=== PATIENT | male | born 1965 | race Caucasian/White ===

== ENCOUNTER 2022-09-15 12:14 | Observation (INO) | payer BC ==
[2022-09-15] MEDS ORDERED: Aspirin Chewable 81 MG TAB ONE (12:48)
[2022-09-15 12:56] LABS: #Basophils 0.1 10x3/uL (0.0-0.2); #Eosinphils 0.1 10x3/uL (0.0-0.5); #Monocytes 0.5 10x3/uL (0.0-1.1); #Neutrophils 3.3 10x3/uL (1.5-8.4); %Eosinophils 1.4 % (0.0-6.0); %Lymphocytes 22.7 % (18.0-47.0); %Monocytes 9.7 % (0.0-10.0); %Neutrophils 64.4 % (40.0-75.0); Hemoglobin 14.6 g/dL (13.5-17.5); Mean Corpuscular HGB CONC 36.6 g/dL (32.0-36.0); Mean Corpuscular Hemoglobin 31.1 pg (27.0-33.0); Mean Corpuscular Volume 84.9 fl (81.2-95.1); Mean Platelet Volume 12.1 fl (7.4-10.4); Platelet Count 195 10x3/uL (150-450); RBC Distribution Width 11.9 % (11.5-14.5); White Blood Cell (WBC) Count 5.1 10x3/uL (3.5-10.5)
[2022-09-15 13:19] LABS: ALT (SGPT) 36 U/L (8-55); AST (SGOT) 21 U/L (5-34); Albumin 4.9 g/dL (3.5-5.0); Alkaline Phosphatase 77 U/L (40-110); Anion Gap 14 mmol/L (10-20); BUN (Urea Nitrogen) 15 mg/dL (8.4-25.7); Bilirubin, Total 0.8 mg/dL (0.2-1.2); Calc. Creatinine Clearance 0 mL/min (70-130); Calcium 9.4 mg/dL (7.8-10.44); Carbon Dioxide 26 mmol/L (22-29); Chloride 104 mmol/L (98-107); Estimated GFR 86; Globulin 2.2 g/dL (2.4-3.5); Glucose 107 mg/dL (70-105); Lipase 26 U/L (8-78); Potassium 3.5 mmol/L (3.5-5.1); Protein, Total 7.1 g/dL (6.0-8.3); Sodium 140 mmol/L (136-145)
[2022-09-15 13:21] LABS: Bilirubin Neg (Negative); Blood, Urine 50 (Negative); Clarity Clear (Clear); Glucose, Urine (Dipstick) Normal (Negative); Ketone, Urine Negative (Negative); Leukocyte Negative (Negative); Nitrite Negative (Negative); Protein, Urine (Dipstick) 30 mg/dl (Neg-Trace); Specific Gravity, Urine 1.015 (1.005-1.030); Urobilinogen Normal mg/dL (Less than 2)
[2022-09-15 13:52] LABS: Bacteria/HPF Rare-Few HPF (None Seen); RBC/HPF 0-3 HPF (0-3); Squamous Epithelial None Seen HPF (0-3); WBC/HPF 0-3 HPF (0-3)
[2022-09-15 16:45] LABS: Troponin I 0.047 ng/mL (< 0.028)
[2022-09-15] MEDS ORDERED: hydrALAZINE 20 MG/ML VIAL SLOW IVP PRN (17:05)
[2022-09-15] MEDS ORDERED: Nitroglycerin 0.4 MG TAB (25 Tab Bottle) SL PRN (17:05)
[2022-09-15] MEDS ORDERED: Labetalol HCl 100 MG/20 ML VIAL SLOW IVP PRN (17:05)
[2022-09-15 18:56] VITALS: BMI 30.5
[2022-09-15 19:47] LABS: Troponin I 0.051 ng/mL (< 0.028)
[2022-09-15] MEDS ORDERED: busPIRone HCl 5 MG TAB PO SCH (22:15)
[2022-09-16 06:19] LABS: Cardiac Risk 4.8 (Less than 4.5)
[2022-09-16] MEDS: busPIRone HCl 5 MG TAB PO SCH ×2 (08:08→16:06)
[2022-09-16] MEDS ORDERED: Aspirin Chewable 81 MG TAB PO SCH (09:00)
[2022-09-16 16:24] VITALS: BP 149/60; TEMP 97.6
[2022-09-16] MEDS ORDERED: Carvedilol 3.125 MG TAB PO SCH (17:00)
[2022-09-16] MEDS ORDERED: Atorvastatin Calcium 20 MG TAB PO SCH (21:00)
[2022-09-21 19:37] LABS: Metanephrine,Plasma 59.3 pg/mL (0.0-88.0)
== END 2022-09-16 18:53 | disposition home or self-care (01) ==
LOC: CSHERS 12:14 → CSHTELE 18:15
PROVIDERS: ADMIT Emergency Medicine; ATTEND Family Medicine
DX: M19.011 Primary osteoarthritis, right shoulder (principal); F90.9 Attention-deficit hyperactivity disorder, unspecified type; R00.2 Palpitations; R55 Syncope and collapse; R20.0 Anesthesia of skin; I10 Essential (primary) hypertension; R77.8 Other specified abnormalities of plasma proteins; Z79.899 Other long term (current) drug therapy; Z90.49 Acquired absence of other specified parts of digestive tract; Z96.611 Presence of right artificial shoulder joint; Z87.891 Personal history of nicotine dependence
CPT/HCPCS: 36415; 70551; 71045; 80053; 80061; 81003; 81015; 83690; 83835; 83880; 84443; 85025; 93005; 93010; 93306; 93880; 96372; G0378; J1650